=== PATIENT | male | born 1965 | race Caucasian/White ===

== ENCOUNTER 2017-07-26 08:13 | Outpatient (CLI) | payer OTHER | END 2017-07-26 08:28 | disposition home or self-care (01) | LOC: NUCLEAR 08:13 | DX: E05.00 Thyrotoxicosis with diffuse goiter without thyrotoxic crisis or storm (principal) | CPT/HCPCS: 78012; A9531 ==

== ENCOUNTER 2017-08-06 10:23 | Outpatient (CLI) | payer OTHER | END 2017-08-06 10:25 | disposition home or self-care (01) | LOC: NUCLEAR 10:23 | DX: E05.90 Thyrotoxicosis, unspecified without thyrotoxic crisis or storm (principal) | CPT/HCPCS: 79005; A9517 ==